=== PATIENT | male | born 1985 | race American Indian/Alaskan Native ===

== ENCOUNTER 2021-02-15 17:55 | Emergency (ER) | payer SELFPAY ==
[2021-02-15 19:41] VITALS: BP 139/74
--- NOTE | 2021-02-15 20:16 | XRay Report ---
RIGHT FOOT 3 VIEWS INDICATION / CLINICAL INFORMATION: right 4th toe pain. COMPARISON: None available. FINDINGS: Comminuted fracture of the base of the proximal phalanx of the fourth toe. No other significant skele mery abnormality Signer Name: Johny Mcfarland MD FACR Signed: 02/15/2021 8:12 PM Workstation Name: [id number]
--- NOTE | 2021-02-15 20:30 | Emergency Department Report ---
ED Lower Extremity HPI - General Chief Complaint: Extremity Injury, Lower Stated Complaint: RT FOOT/TOES BROKEN Time Seen by Provider: 02/15/21 19:45 Source: patient Mode of arrival: Ambulatory Limitations: No Limitations - History of Present Illness Initial Comments: Patient is a 35-year-old male presents emergency room with complaints of a right fourth toe injury that occurred a few hours ago. Patient states that he was moving a mirror and could not really see where he was going. He states that he hit his toe directly against the edge of the bed. He states since then he has had toe pain and swelling and difficulty moving the toe. He denies any numbness. He denies ever injuring in the past. He denies any other injury. No past medical history. No allergies medications. - Related Data Allergies Allergy/AdvReac Type Severity Reaction Status Date / Time No Known Allergies Allergy Unverified 02/15/21 19:39 ED Review of Systems ROS: Stated complaint: RT FOOT/TOES BROKEN Other details as noted in HPI Comment: All other systems reviewed and negative ED Past Medical Hx - Past Medical History Previous Medical History?: No - Surgical History Past Surgical History?: No - Social History Smoking Status: Current Every Day Smoker Substance Use Type: Alcohol ED Physical Exam - General Limitations: No Limitations General appearance: alert, in no apparent distress - Head Head exam: Present: atraumatic, normocephalic - Eye Eye exam: Present: normal appearance - ENT ENT exam: Present: mucous membranes moist - Respiratory Respiratory exam: Absent: respiratory distress, accessory muscle use - Extremities Exam Extremities exam: Present: other (ttp and edema present to the right 4th toe, decreased ROM of the right 4th toe, no ttp of the other toes, foot, or ankle, neurovascularly intact) - Neurological Exam Neurological exam: Present: alert, oriented X3 - Psychiatric Psychiatric exam: Present: normal affect, normal mood - Skin Skin exam: Present: warm, dry, intact ED Course Vital Signs 02/15/21 19:39 Temperature 98.1 F Pulse Rate 85 Respiratory 18 Rate Blood Pressure 139/74 O2 Sat by Pulse 100 Oximetry ED Lower Extremity MDM - Radiology Data Radiology results: report reviewed Ordering Physician: WELLINGTON CONDE Date of Service: 02/15/21 Procedure(s): XR foot 3+V RT Accession Number(s): [id number] cc: WELLINGTON CONDE Fluoro Time In Minutes: RIGHT FOOT 3 VIEWS INDICATION / CLINICAL INFORMATION: right 4th toe pain. COMPARISON: None available. FINDINGS: Comminuted fracture of the base of the proximal phalanx of the fourth toe. No other significant skeletal abnormality Signer Name: Johny Mcfarland MD FACR Signed: 02/15/2021 8:12 PM Workstation Name: [id number] Transcribed By: MS Dictated By: Johny Mcfarland MD Electronically Authenticated By: Johny Mcfarland MD Signed Date/Time: 02/15/212011 DD/ 11 TD/TT: Print Cancel - Medical Decision Making Patient is a 35-year-old male presents emergency room with complaints of a right fourth toe injury that occurred a few hours ago. Patient states that he was moving a mirror and could not really see where he was going. He states that he hit his toe directly against the edge of the bed. He states since then he has had toe pain and swelling and difficulty moving the toe. He denies any numbness. He denies ever injuring in the past. He denies any other injury. No past medical history. No allergies medications. Vitals are stable. On exam:ttp and edema present to the right 4th toe, decreased ROM of the right 4th toe, no ttp of the other toes, foot, or ankle, neurovascularly intact. XR right foot: Comminuted fracture of the base of the proximal phalanx of the fourth toe. No other significant skeletal abnormality. Emeka taping performed by tech, given postop shoe and crutches. Patient was advised Your x-ray shows that you have a fractured/broken fourth toe. Please follow-up with orthopedic doctor. May alternate Tylenol and ibuprofen as needed for discomfort. Return to emergency room for new or worsening symptoms. Critical care attestation.: If time is entered above; I have spent that time in minutes in the direct care of this critically ill patient, excluding procedure time. ED Disposition Clinical Impression: Fracture of fourth toe, right, closed Qualifiers: Encounter type: initial encounter Qualified Code(s): S92.501A - Displaced unspecified fracture of right lesser toe(s), initial encounter for closed fracture Disposition: DC-01 TO HOME OR SELFCARE Is pt being admited?: No Does the pt Need Aspirin: No Condition: Stable Instructions: Toe Fracture, [id number] Additional Instructions: Your x-ray shows that you have a fractured/broken fourth toe. Please follow-up with orthopedic doctor. May alternate Tylenol and ibuprofen as needed for discomfort. Return to emergency room for new or worsening symptoms. Referrals: PETAR FROST MD [Staff Physician] - 3-5 Days [facility] [Provider Group] - 3-5 Days Time of Disposition: 20:29 Print Language: SLOV[place]
== END 2021-02-15 22:20 | disposition home or self-care (01) ==
LOC: ED 17:55
DX: S92.501A Displaced unspecified fracture of right lesser toe(s), initial encounter for closed fracture (principal); F17.200 Nicotine dependence, unspecified, uncomplicated; X50.9XXA Other and unspecified overexertion or strenuous movements or postures, initial encounter; Y93.89 Activity, other specified; Y92.89 Other specified places as the place of occurrence of the external cause; Y99.8 Other external cause status
CPT/HCPCS: 99283